=== PATIENT | male | born 1990 | race Caucasian/White ===

== ENCOUNTER 2023-07-22 05:51 | Inpatient (IN) | payer MEDICAID ==
[~2023-07-22] VITALS: Ht 188 cm; Wt 120.4 kg
[~2023-07-22 05:51] MED LIST: NO HOME MEDS
[2023-07-22] MEDS ORDERED: vancomycin/NS 1 GM ADD-VANTAGE 250 ML IV ONE (07:10)
[2023-07-22] MEDS ORDERED: aspirin 81mg tab.chew PO ONE (08:10)
[2023-07-22 08:43] LABS: BASOPHILS % (AUTO) 0.5 % (0-1); EOSINOPHILS # (AUTO) 0.1 X10'3 (0-0.9); EOSINOPHILS % (AUTO) 1.2 % (0-6); HEMATOCRIT 35.4 % (42.0-52.0); HEMOGLOBIN 11.8 g/dl (14.0-17.9); LYMPHOCYTES # (AUTO) 1.1 X10'3 (1.1-4.8); LYMPHOCYTES % (AUTO) 16.5 % (21-51); MEAN CORPUSCULAR HEMOGLOBIN 29.5 PG (27.0-31.0); MEAN CORPUSCULAR HGB CONC 33.3 g/dL (33.0-36.5); MEAN CORPUSCULAR VOLUME 88.7 FL (78-98); MEAN PLATELET VOLUME 8.4 FL (7.4-10.4); MONOCYTES # (AUTO) 0.7 X10'3 (0-0.9); MONOCYTES % (AUTO) 11.3 % (2-12); NEUTROPHILS # (AUTO) 4.6 X10'3 (1.8-7.7); NEUTROPHILS % (AUTO) 70.5 % (42-75); PLATELET COUNT 245 X10'3 (140-440); RED BLOOD COUNT 3.99 X10'6 (4.70-6.10); RED CELL DISTRIBUTION WIDTH 14.3 % (11.5-14.5); WHITE BLOOD COUNT 6.5 X10'3 (4.5-11.0)
[2023-07-22 08:51] LABS: APTT 34 SECONDS (22-32); PROTHROMBIN TIME 10.3 SECONDS (9.0-12.0)
[2023-07-22 08:54] LABS: ALANINE AMINOTRANSFERASE 72 U/L (12-78); ALBUMIN 3.6 G/DL (3.4-5.0); ALBUMIN/GLOBULIN RATIO 0.9 (1.1-1.5); ALKALINE PHOSPHATASE 114 IU/L (46-116); ANION GAP 7 (8-16); ASPARTATE AMINO TRANSFERASE 62 U/L (10-37); BILIRUBIN,TOTAL 0.5 MG/DL (0.1-1.0); BLOOD UREA NITROGEN 12 MG/DL (7-18); BUN/CREATININE RATIO 11.3 (10.0-20.0); CALCIUM 8.9 MG/DL (8.5-10.1); CHLORIDE 100 MMOL/L (99-107); CREATININE 1.06 MG/DL (0.60-1.10); GLUCOSE 101 MG/DL (70-104); POTASSIUM 4.1 MMOL/L (3.5-5.1); SODIUM 136 MMOL/L (135-145); TOTAL CARBON DIOXIDE 29.3 MMOL/L (24-32); TOTAL PROTEIN 7.8 G/DL (6.4-8.2); eCRCL 114 ML/MIN; eGFR 80 ML/MIN
[2023-07-22 09:02] LABS: PRO BRAIN NATRIURETIC PEPTIDE 70 PG/ML (0-125)
[2023-07-22] MEDS ORDERED: magnesium hydroxide 30ml (MOM) UD suspension PO PRN (10:05)
[2023-07-22] MEDS ORDERED: potassium Cl 20 mEq SR tablet PO PRN ×2 (10:05)
[2023-07-22] MEDS ORDERED: mag hydrox/Alum hydrox/simeth 30ml oral suspension PO PRN (10:05)
[2023-07-22] MEDS ORDERED: magnesium Cl slow-release 64mg tablet PO PRN (10:05)
[2023-07-22] MEDS ORDERED: acetaminophen 325mg tablet PO PRN ×2 (10:05)
[2023-07-22] MEDS ORDERED: ondansetron/PF 4mg/2ml inj IV PRN (10:05)
[2023-07-22] MEDS ORDERED: CefTRIAXone/D5W-Rocephin 1gm 50 ML IV SCH (10:35)
[2023-07-22] MEDS ORDERED: PERFLUTREN PROTEIN-A MICROSPHR (Optison) 0.22 MG/ML 3ML VIAL IV ONE (10:35)
[2023-07-22 10:49] LABS: MAGNESIUM 2.1 MG/DL (1.5-2.4); POTASSIUM 4.2 MMOL/L (3.5-5.1)
[2023-07-22] MEDS ORDERED: nicotine 21mg patch - 24 hr TD ONE (10:50)
[2023-07-22] MEDS ORDERED: furosemide 20 MG/2 ML vial IV ONE (10:55)
[2023-07-22 11:15] VITALS: BP 109/64; PULSE 82; TEMP 97.6; O2SAT 98
[2023-07-22 11:18] VITALS: RESP 16
[2023-07-22 11:42] LABS: URINE AMPHETAMINE SCREEN POSITIVE (Neg); URINE BARBITUATE SCREEN NEGATIVE (Neg); URINE BENZODIAZEPINES SCREEN POSITIVE (Neg); URINE CANNABINOID SCREEN NEGATIVE (Neg); URINE COCAINE SCREEN NEGATIVE (Neg); URINE METHADONE SCREEN NEGATIVE (Neg); URINE OPIATE SCREEN NEGATIVE (Neg); URINE PHENCYCLIDINE SCREEN NEGATIVE (Neg)
--- NOTE | 2023-07-22 11:51 | NUR ---
PT LEFT AMA AND SIGNED AMA FORM. PT PROVIDED RELEASE FORM FROM [facility] AND RN MADE A COPY AND PLACED IT IN THE PT CHART. PT PULLED OUT HIS IV/TIP WAS INTACT AND THERE WERE NO SITE COMPLICATIONS. PT INSISTED ON LEAVING AMA DESPITE BEING EDUCATED ABOUT THE RISKS OF LEAVING/RISK OF /AND VERBALIZED UNDERSTANDING OF RISKS.
[2023-07-22 11:57] LABS: BILIRUBIN,URINE NEGATIVE (Neg); CLARITY,URINE CLEAR (Clear); COLOR,URINE YELLOW (Yellow); GLUCOSE, URINE NEGATIVE (Neg); KETONES,URINE NEGATIVE (Neg); LEUKOCYTE ESTERASE ,URINE NEGATIVE (Neg); NITRITES, URINE NEGATIVE (Neg); OCCULT BLOOD,URINE NEGATIVE (Neg); PROTEIN,URINE NEGATIVE (Neg); UROBILINOGEN,URINE 0.2 E.U/dL (0.2-1.0)
[2023-07-22 12:07] LABS: UA COLLECTION TYPE CLN CATCH MIDSTREAM
--- NOTE | 2023-07-22 12:07 | NUR ---
RN PAGED DR LEE- ED 9- LEFT AMA/RELEASED BY [facility].
[2023-07-22] MEDS ORDERED: vancomycin/NS 1 GM ADD-VANTAGE 250 ML IV SCH (16:00)
[2023-07-22] MEDS ORDERED: heparin, porcine 5000 units/ml vial SQ SCH (16:00)
[2023-07-23] MEDS ORDERED: VANCOMYCIN LEVEL IV ONE (07:30)
== END 2023-07-22 12:09 | disposition left against medical advice (07) | DRG 383 ==
LOC: ER 05:51 → ED HOLD 10:07
PROVIDERS: ADMIT Family Medicine; ATTEND Family Medicine
DX: L03.116 Cellulitis of left lower limb (principal); G93.41 Metabolic encephalopathy; F17.210 Nicotine dependence, cigarettes, uncomplicated; Z53.21 Procedure and treatment not carried out due to patient leaving prior to being seen by health care provider; F15.90 Other stimulant use, unspecified, uncomplicated; Z86.718 Personal history of other venous thrombosis and embolism; Z56.0 Unemployment, unspecified
CPT/HCPCS: 36415; 71045; 80053; 80305; 81003; 83605; 83735; 83880; 84132; 84484; 85025; 85610; 85730; 87040; 93971; 96365; 99285; C1758; G0378; J0696; J1940; J3370; J7030